=== PATIENT | male | born 1990 ===

== ENCOUNTER 2018-11-24 11:34 | Emergency (ER) | payer MEDICARE, MEDICAID, SELFPAY ==
[2018-11-24 11:45] VITALS: BP 120/72; PULSE 74; RESP 15; TEMP 36.9; O2SAT 98; BMI 23.8
--- NOTE | 2018-11-24 11:49 | ED.EYEPROB ---
HPI - Eye Problem General Chief complaint: Eye Problems Stated complaint: sharp pain rt eye, forehead,cheek x3days Time Seen by Provider: 11/24/18 11:43 Source: patient Mode of arrival: ambulatory Limitations: no limitations History of Present Illness HPI Narrative: The patient is a 28-year-old male presenting with right eye problem. He says he felt like something has been in his eye for about a month. He started getting more swelling and drainage from his eye about 3 days ago. At which point he was seen and evaluated at an emergency department in [place]. There he was started on polymyxin eye drops and Keflex. He states that it has overall gotten worse swelling in his eye has gotten worse. 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 He denies any pain with eye movements no fevers. He does have some numbness on his right face which she can't say exactly when that started. He has some numbness in his right arm. He denies any injury to his head. MD chief complaint: eye pain and eye redness Onset (ago): day(s) (3) Onset description: gradual Duration: constant Location: right eye Eye Symptoms: redness, foreign body sensation, itching and discharge Related Data Previous Rx's Medication Instructions Recorded levofloxacin [Levaquin] 500 mg PO DAILY #7 tab 11/24/18 prednisone 40 mg PO DAILY #10 tab 11/24/18 sulfamethoxazole-trimethoprim 1 tab PO BID #14 tab 11/24/18 [Bactrim DS] Allergies Allergy/AdvReac Type Severity Reaction Status Date / Time amoxicillin Allergy Hives Verified 11/24/18 11:54 Penicillins Allergy Hives Verified 11/24/18 11:54 Review of Systems Review of Systems ROS Unobtainable: All systems reviewed & are unremarkable except as noted in HPI and below Constitutional Denies chills, Denies fever(s), Denies lethargy and Denies weakness Eyes Reports as per HPI ENT Ears, Nose, Mouth, and Throat: Denies change in voice, Denies neck pain and Denies sore throat Cardiovascular Denies chest pain, Denies irregular heart rhythm, Denies lightheadedness, Denies palpitations and Denies orthopnea Gastrointestinal Gastrointestinal: Denies abdominal pain, Denies change in bowel habits, Denies diarrhea, Denies nausea and Denies vomiting Genitourinary Comments: Incontinence Musculoskeletal Denies neck pain Integumentary/Breasts Reports as per HPI Neurologic Reports sensory deficit (right face) and Denies weakness Endocrine Denies palpitations [facility] Medical History Closed TBI (traumatic brain injury) (Acute) Keratoconus (Acute) Social History Smoking Status: Never smoker Social History Smoking Status: Never smoker Exam Initial Vital Signs Initial Vital Signs: Vital Signs Temperature 98.4 F 11/24/18 11:45 Pulse Rate 74 11/24/18 11:45 Respiratory Rate 15 11/24/18 11:45 Blood Pressure 120/72 11/24/18 11:45 Pulse Oximetry 98 11/24/18 11:45 GENERAL: Well-appearing, well-nourished and in no acute distress. HEENT: Head atraumatic, face is not symmetric. He is not able to wrinkle his right forehead or raise his right eyebrow. He has right-sided facial drooping. EYES: Right eye upper lid swelling erythema is tender to touch. Gross discharge from the right eye. Eye is stained with fluorescein and no dye uptake. EOMI JEFFERY Left eye within normal limits CARDIOVASCULAR: Regular rate and rhythm without murmurs, rubs or gallops. RESPIRATORY: Breath sounds equal bilaterally, no wheezes rales or rhonchi. EXTREMITIES: Normal range of motion, no clubbing or edema. Neurovascularly intact NEUROLOGICAL: Alert and oriented x4.Normal gait and speech. facial drooping as described above. Also decreased sensation to light touch on right arm as well SKIN: Warm, dry, no laceration, no petechiae, no rashes or lesions. Course Orders Ordered: ED Orders 11/24/18 12:52 CT head/brain wo con Stat CT orbit BI w con Stat 11/24/18 13:00 Basic Metabolic Panel Stat Complete Blood Count AUTO DIFF Stat Vital Signs - 8 hr 11/24/18 11:45 11/24/18 14:09 Temperature 98.4 F Pulse Rate 74 58 L Respiratory Rate 15 17 Blood Pressure 120/72 Blood Pressure [Left Arm] 128/87 Pulse Oximetry 98 99 MDM - Eye Problem Lab Data Attestation: I reviewed the patient's lab results. Result diagrams: 11/24/18 13:00 11/24/18 13:00 Lab Results 11/24/18 11/24/18 Range/Units 13:00 13:00 WBC 5.5 (4.5-11.0) X10^3/uL RBC 5.08 (4.5-5.9) X10^6/uL Hgb 14.1 (13.5-17.5) g/dL Hct 43.5 (41-53) % MCV 85.6 (80-100) fL MCH 27.8 (26-34) PG MCHC 32.4 (30-36) % RDW 12.7 (11.6-14.8) % Plt Count 231 (150-400) X10^3/uL Neut % (Auto) 49.4 L (50-75) % Lymph % (Auto) 37.0 (25-40) % [place] % (Auto) 10.1 (3-14) % Eos % (Auto) 2.2 (2-4) % Baso % (Auto) 1.3 (0-2) % Neut # (Auto) 2700 (4759-5872) /uL Lymph # (Auto) 2000 (1926-9458) /uL [place] # (Auto) 600 (0-900) /uL Eos # (Auto) 100 (0-450) /uL Baso # (Auto) 100 (0-100) /uL Sodium 139 (137-145) mmol/L Potassium 3.9 (3.4-5.1) mmol/L Chloride 99 (98-107) mmol/L Carbon Dioxide 30 (22-32) mmol/L BUN 8 L (9-20) mg/dL Creatinine 1.00 (0.66-1.25) mg/dL Estimated GFR > 60.0 (>60) mL/min BUN/Creatinine Ratio 8.0 (6-22) Glucose 71 (70-100) mg/dL Calcium 9.4 (8.4-10.2) mg/dL Imaging Data CT scan - head: Radiologist's impression: PROCEDURE: CT HEAD/BRAIN WO CON INDICATIONS: right facial droop, hx of TBI TECHNIQUE: Noncontrast 4.5 mm thick angled axial sections acquired from the foramen magnum to the vertex, with coronal and sagittal reformats. For radiation dose reduction, the following was used: automated exposure control, adjustment of mA and/or kV according to patient size. COMPARISON: None. FINDINGS: Image quality: Excellent. CSF spaces: Basal cisterns are patent. No extra-axial fluid collections. Ventricles are normal in size and shape. Brain: No midline shift. No intracranial masses or hemorrhage. Gore-white matter interface is normal. Skull and face: Mild right periorbital edema/skin thickening. No calvarial fracture. Sinuses: Visualized sinuses and mastoids are clear. IMPRESSION: No acute intracranial abnormality. Mild right periorbital edema/skin thickening. Dictated by: Panchito Carranza M.D. on 11/24/2018 at 13:33 CT orbits: Radiologist's impression: PROCEDURE: CT ORBIT BI W CON INDICATIONS: right eye swelling redness ?orbit cellulitis TECHNIQUE: After the administration of intravenous contrast, 2.5 mm axial images acquired through the orbits, with coronal and sagittal reformats. For radiation dose reduction, the following was used: automated exposure control, adjustment of mA and/or kV according to patient size. COMPARISON: [facility], CT, CT HEAD/BRAIN WO CON, 11/24/2018, 12:57. FINDINGS: Image quality: Excellent. Orbits: Globes are symmetric. The optic nerves are normal in size and enhancement. No retrobulbar masses or fat abnormalities. The extra-ocular muscles are normal and symmetrical in appearance. There is mild right pre-septal periorbital soft tissue edema/skin thickening. No post septal edema identified. Intracranial: Visualized intracranial structures appear unremarkable. Bones and sinuses: Visualized calvarium and facial bones appear intact. Visualized sinuses and mastoids are clear. IMPRESSION: Mild right preseptal periorbital soft tissue edema/skin thickening, which can be seen with a periorbital cellulitis. Dictated by: Panchito Carranza M.D. on 11/24/2018 at 13:39 MDM Narrative Medical decision making narrative: The patient is afebrile. He has some superficial erythema on his right eyelid also probably a stye and gross drainage. At this time would like to change his antibiotics for more coverage. He has been taking Keflex for the last 3 days will change him to Bactrim Levaquin. Does not appear grossly septic. They are going back to [place] where they are from and have a PCP. Reviewed records from [place]. Patient id araujo he agree with this plan. 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 We put him on prednisone for this as well. Discharge Plan Departure Patient Disposition: Home Clinical Impression: Garcia's palsy Periorbital cellulitis Qualifiers: Laterality: right Qualified Code(s): L03.213 - Periorbital cellulitis Discharge Date/Time: 11/24/18 14:20 Interventions: ED Discharge Assessment Last Done: 11/24/18 14:19 Instructions: DI for Garcia's Palsy, DI for Orbital Cellulitis Activity Restrictions/Additional Instructions: *You have been diagnosed with pre septal orbital cellulitis, bells palsy *What to do: Do have infection of skin around the eye. May require artificial tears. Be sure to put tears in right eye *Continue to take medications as directed -Stop Cephalexin -continue eyedrops -Levaquin 500 mg once a day for 7 -Bactrim 1 tab twice daily for 7 days -prednisone 40 mg once daily for 5 days *Follow up with your primary care provider in 2-3 days *Return to ER if you should have fever, worsening redness, or any new, worsening or concerning symptoms Prescriptions: New sulfamethoxazole-trimethoprim [Bactrim DS] 800-160 mg tablet 1 tab PO BID Qty: 14 RF: 0 levofloxacin [Levaquin] 500 mg tablet 500 mg PO DAILY Qty: 7 RF: 0 prednisone 20 mg tablet 40 mg PO DAILY Qty: 10 RF: 0
--- NOTE | 2018-11-24 12:06 | PC.NURSE ---
Pt is legally blind. Using eyepatch, states light is causing pain in the eye. does have a white spot on upper eyelid and states this is where the pain started initially.
--- NOTE | 2018-11-24 12:52 | DI.CT.S_ITS ---
PROCEDURE: CT ORBIT BI W CON INDICATIONS: right eye swelling redness ?orbit cellulitis TECHNIQUE: After the administration of intravenous contrast, 2.5 mm axial images acquired through the orbits, with coronal and sagittal reformats. For radiation dose reduction, the following was used: automated exposure control, adjustment of mA and/or kV according to patient size. COMPARISON: [facility], CT, CT HEAD/BRAIN WO CON, 11/24/2018, 12:57. FINDINGS: Image quality: Excellent. Orbits: Globes are symmetric. The optic nerves are normal in size and enhancement. No retrobulbar masses or fat abnormalities. The extra-ocular muscles are normal and symmetrical in appearance. There is mild right pre-septal periorbital soft tissue edema/skin thickening. No post septal edema identified. Intracranial: Visualized intracranial structures appear unremarkable. Bones and sinuses: Visualized calvarium and facial bones appear intact. Visualized sinuses and mastoids are clear. IMPRESSION: Mild right preseptal periorbital soft tissue edema/skin thickening, which can be seen with a periorbital cellulitis. Dictated by: Panchito Carranza M.D. on 11/24/2018 at 13:39 Approved by: Panchito Carranza M.D. on 11/24/2018 at 13:44
--- NOTE | 2018-11-24 12:52 | DI.CT.S_ITS ---
PROCEDURE: CT HEAD/BRAIN WO CON INDICATIONS: right facial droop, hx of TBI TECHNIQUE: Noncontrast 4.5 mm thick angled axial sections acquired from the foramen magnum to the vertex, with coronal and sagittal reformats. For radiation dose reduction, the following was used: automated exposure control, adjustment of mA and/or kV according to patient size. COMPARISON: None. FINDINGS: Image quality: Excellent. CSF spaces: Basal cisterns are patent. No extra-axial fluid collections. Ventricles are normal in size and shape. Brain: No midline shift. No intracranial masses or hemorrhage. Gore-white matter interface is normal. Skull and face: Mild right periorbital edema/skin thickening. No calvarial fracture. Sinuses: Visualized sinuses and mastoids are clear. IMPRESSION: No acute intracranial abnormality. Mild right periorbital edema/skin thickening. Dictated by: Panchito Carranza M.D. on 11/24/2018 at 13:33 Approved by: Panchito Carranza M.D. on 11/24/2018 at 13:39
[2018-11-24 13:10] LABS: Add Manual Diff / Slide Review NO; Basophils Absolute Auto 100 /uL (0-100); Basophils Percent Auto 1.3 % (0-2); Eosinophils Absolute Auto 100 /uL (0-450); Eosinophils Percent Auto 2.2 % (2-4); Hematocrit 43.5 % (41-53); Hemoglobin 14.1 g/dL (13.5-17.5); Lymphocytes Absolute Auto 2000 /uL (1100-4500); Mean Corpuscular HGB Conc 32.4 % (30-36); Mean Corpuscular Hemoglobin 27.8 PG (26-34); Mean Corpuscular Volume 85.6 fL (80-100); Monocytes Absolute Auto 600 /uL (0-900); Monocytes Percent Auto 10.1 % (3-14); Neutrophils Absolute Auto 2700 /uL (1500-7000); Neutrophils Percent Auto 49.4 % (50-75); Platelet Count 231 X10^3/uL (150-400); Red Blood Cell Count 5.08 X10^6/uL (4.5-5.9); Red Cell Distribution Width 12.7 % (11.6-14.8); White Blood Cell Count 5.5 X10^3/uL (4.5-11.0)
--- NOTE | 2018-11-24 13:15 | ED_ITS ---
HPI - Eye Problem General Chief complaint: Eye Problems Stated complaint: sharp pain rt eye, forehead,cheek x3days Time Seen by Provider: 11/24/18 11:43 Source: patient Mode of arrival: ambulatory Limitations: no limitations History of Present Illness HPI Narrative: The patient is a 28-year-old male presenting with right eye problem. He says he felt like something has been in his eye for about a month. He started getting more swelling and drainage from his eye about 3 days ago. At which point he was seen and evaluated at an emergency department in [place]. There he was started on polymyxin eye drops and Keflex. He states that it has overall gotten worse swelling in his eye has gotten worse. 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 He denies any pain with eye movements no fevers. He does have some numbness on his right face which she can't say exactly when that started. He has some numbness in his right arm. He denies any injury to his head. MD chief complaint: eye pain and eye redness Onset (ago): day(s) (3) Onset description: gradual Duration: constant Location: right eye Eye Symptoms: redness, foreign body sensation, itching and discharge Related Data Previous Rx's Medication Instructions Recorded levofloxacin [Levaquin] 500 mg PO DAILY #7 tab 11/24/18 prednisone 40 mg PO DAILY #10 tab 11/24/18 sulfamethoxazole-trimethoprim 1 tab PO BID #14 tab 11/24/18 [Bactrim DS] Allergies Allergy/AdvReac Type Severity Reaction Status Date / Time amoxicillin Allergy Hives Verified 11/24/18 11:54 Penicillins Allergy Hives Verified 11/24/18 11:54 Review of Systems Review of Systems ROS Unobtainable: All systems reviewed & are unremarkable except as noted in HPI and below Constitutional Denies chills, Denies fever(s), Denies lethargy and Denies weakness Eyes Reports as per HPI ENT Ears, Nose, Mouth, and Throat: Denies change in voice, Denies neck pain and Denies sore throat Cardiovascular Denies chest pain, Denies irregular heart rhythm, Denies lightheadedness, Denies palpitations and Denies orthopnea Gastrointestinal Gastrointestinal: Denies abdominal pain, Denies change in bowel habits, Denies diarrhea, Denies nausea and Denies vomiting Genitourinary Comments: Incontinence Musculoskeletal Denies neck pain Integumentary/Breasts Reports as per HPI Neurologic Reports sensory deficit (right face) and Denies weakness Endocrine Denies palpitations [facility] Medical History Closed TBI (traumatic brain injury) (Acute) Keratoconus (Acute) Social History Smoking Status: Never smoker Social History Smoking Status: Never smoker Exam Initial Vital Signs Initial Vital Signs: Vital Signs Temperature 98.4 F 11/24/18 11:45 Pulse Rate 74 11/24/18 11:45 Respiratory Rate 15 11/24/18 11:45 Blood Pressure 120/72 11/24/18 11:45 Pulse Oximetry 98 11/24/18 11:45 GENERAL: Well-appearing, well-nourished and in no acute distress. HEENT: Head atraumatic, face is not symmetric. He is not able to wrinkle his right forehead or raise his right eyebrow. He has right-sided facial drooping. EYES: Right eye upper lid swelling erythema is tender to touch. Gross discharge from the right eye. Eye is stained with fluorescein and no dye uptake. EOMI JEFFERY Left eye within normal limits CARDIOVASCULAR: Regular rate and rhythm without murmurs, rubs or gallops. RESPIRATORY: Breath sounds equal bilaterally, no wheezes rales or rhonchi. EXTREMITIES: Normal range of motion, no clubbing or edema. Neurovascularly intact NEUROLOGICAL: Alert and oriented x4.Normal gait and speech. facial drooping as described above. Also decreased sensation to light touch on right arm as well SKIN: Warm, dry, no laceration, no petechiae, no rashes or lesions. Course Orders Ordered: ED Orders 11/24/18 12:52 CT head/brain wo con Stat CT orbit BI w con Stat 11/24/18 13:00 Basic Metabolic Panel Stat Complete Blood Count AUTO DIFF Stat Vital Signs - 8 hr 11/24/18 11:45 11/24/18 14:09 Temperature 98.4 F Pulse Rate 74 58 L Respiratory Rate 15 17 Blood Pressure 120/72 Blood Pressure [Left Arm] 128/87 Pulse Oximetry 98 99 MDM - Eye Problem Lab Data Attestation: I reviewed the patient's lab results. Result diagrams: 11/24/18 13:00 11/24/18 13:00 Lab Results 11/24/18 11/24/18 Range/Units 13:00 13:00 WBC 5.5 (4.5-11.0) X10^3/uL RBC 5.08 (4.5-5.9) X10^6/uL Hgb 14.1 (13.5-17.5) g/dL Hct 43.5 (41-53) % MCV 85.6 (80-100) fL MCH 27.8 (26-34) PG MCHC 32.4 (30-36) % RDW 12.7 (11.6-14.8) % Plt Count 231 (150-400) X10^3/uL Neut % (Auto) 49.4 L (50-75) % Lymph % (Auto) 37.0 (25-40) % [place] % (Auto) 10.1 (3-14) % Eos % (Auto) 2.2 (2-4) % Baso % (Auto) 1.3 (0-2) % Neut # (Auto) 2700 (5736-3275) /uL Lymph # (Auto) 2000 (4290-8014) /uL [place] # (Auto) 600 (0-900) /uL Eos # (Auto) 100 (0-450) /uL Baso # (Auto) 100 (0-100) /uL Sodium 139 (137-145) mmol/L Potassium 3.9 (3.4-5.1) mmol/L Chloride 99 (98-107) mmol/L Carbon Dioxide 30 (22-32) mmol/L BUN 8 L (9-20) mg/dL Creatinine 1.00 (0.66-1.25) mg/dL Estimated GFR > 60.0 (>60) mL/min BUN/Creatinine Ratio 8.0 (6-22) Glucose 71 (70-100) mg/dL Calcium 9.4 (8.4-10.2) mg/dL Imaging Data CT scan - head: Radiologist's impression: PROCEDURE: CT HEAD/BRAIN WO CON INDICATIONS: right facial droop, hx of TBI TECHNIQUE: Noncontrast 4.5 mm thick angled axial sections acquired from the foramen magnum to the vertex, with coronal and sagittal reformats. For radiation dose reduction, the following was used: automated exposure control, adjustment of mA and/or kV according to patient size. COMPARISON: None. FINDINGS: Image quality: Excellent. CSF spaces: Basal cisterns are patent. No extra-axial fluid collections. Vent ricles are normal in size and shape. Brain: No midline shift. No intracranial masses or hemorrhage. Gore-white matter interface is normal. Skull and face: Mild right periorbital edema/skin thickening. No calvarial fracture. Sinuses: Visualized sinuses and mastoids are clear. IMPRESSION: No acute intracranial abnormality. Mild right periorbital edema/skin thickening. Dictated by: Panchito Carranza M.D. on 11/24/2018 at 13:33 CT orbits: Radiologist's impression: PROCEDURE: CT ORBIT BI W CON INDICATIONS: right eye swelling redness ?orbit cellulitis TECHNIQUE: After the administration of intravenous contrast, 2.5 mm axial images acquired through the orbits, with coronal and sagittal reformats. For radiation dose reduction, the following was used: automated exposure control, adjustment of mA and/or kV according to patient size. COMPARISON: [facility], CT, CT HEAD/BRAIN WO CON, 11/24/2018, 12:57. FINDINGS: Image quality: Excellent. Orbits: Globes are symmetric. The optic nerves are normal in size and enhancement. No retrobulbar masses or fat abnormalities. The extra-ocular muscles are normal and symmetrical in appearance. There is mild right pre-septal periorbital soft tissue edema/skin thickening. No post septal edema identified. Intracranial: Visualized intracranial structures appear unremarkable. Bones and sinuses: Visualized calvarium and facial bones appear intact. Visualized sinuses and mastoids are clear. IMPRESSION: Mild right preseptal periorbital soft tissue edema/skin thickening, which can be seen with a periorbital cellulitis. Dictated by: Panchito Carranza M.D. on 11/24/2018 at 13:39 MDM Narrative Medical decision making narrative: The patient is afebrile. He has some superficial erythema on his right eyelid also probably a stye and gross drai nage. At this time would like to change his antibiotics for more coverage. He has been taking Keflex for the last 3 days will change him to Bactrim Levaquin. Does not appear grossly septic. They are going back to [place] where they are from and have a PCP. Reviewed records from [place]. Patient id araujo he agree with this plan. 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 We put him on prednisone for this as well. Discharge Plan Departure Patient Disposition: Home Clinical Impression: Garcia's palsy Periorbital cellulitis Qualifiers: Laterality: right Qualified Code(s): L03.213 - Periorbital cellulitis Discharge Date/Time: 11/24/18 14:20 Interventions: ED Discharge Assessment Last Done: 11/24/18 14:19 Instructions: DI for Garcia's Palsy, DI for Orbital Cellulitis Activity Restrictions/Additional Instructions: *You have been diagnosed with pre septal orbital cellulitis, bells palsy *What to do: Do have infection of skin around the eye. May require artificial tears. Be sure to put tears in right eye *Continue to take medications as directed -Stop Cephalexin -continue eyedrops -Levaquin 500 mg once a day for 7 -Bactrim 1 tab twice daily for 7 days -prednisone 40 mg once daily for 5 days *Follow up with your primary care provider in 2-3 days *Return to ER if you should have fever, worsening redness, or any new, worsening or concerning symptoms Prescriptions: New sulfamethoxazole-trimethoprim [Bactrim DS] 800-160 mg tablet 1 tab PO BID Qty: 14 RF: 0 levofloxacin [Levaquin] 500 mg tablet 500 mg PO DAILY Qty: 7 RF: 0 prednisone 20 mg tablet 40 mg PO DAILY Qty: 10 RF: 0
[2018-11-24 13:24] LABS: Blood Urea Nitrogen 8 mg/dL (9-20); Calcium 9.4 mg/dL (8.4-10.2); Carbon Dioxide 30 mmol/L (22-32); Chloride 99 mmol/L (98-107); Estimated Glomerular Filt Rate > 60.0 mL/min (>60); Glucose 71 mg/dL (70-100); HEMOLYSIS < 15 (0-50); Potassium 3.9 mmol/L (3.4-5.1); Sodium 139 mmol/L (137-145)
[2018-11-24 14:09] VITALS: BP 128/87; PULSE 58; RESP 17; O2SAT 99
== END 2018-11-24 14:20 | disposition home or self-care (01) ==
PROVIDERS: Emergency Provider Emergency Medicine
DX: G51.0 Bell's palsy (principal); L03.213 Periorbital cellulitis; R20.0 Anesthesia of skin
CPT/HCPCS: 36591; 70450; 70481; 80048; 85025; 99282; 99284; Q9967